=== PATIENT | male | born 1955 | race Hispanic/Latino ===

== ENCOUNTER 2016-07-04 13:09 | Inpatient (IN) | payer MEDICARE ==
[2016-07-04] MEDS ORDERED: DULCOLAX PR PRN (14:17)
[2016-07-04] MEDS ORDERED: DUONEB 0.5 MG-3 MG/3 ML SOLN IH PRN (14:17)
[2016-07-04] MEDS: SENOKOT PO SCH (15:58)
--- NOTE | 2016-07-04 16:01 | History and Physical Report ---
History of Present Illness Date: 07/04/16 Referring Facility: [facility] Date of admission: 07/04/16 13:09 Chief Complaint: Debility, s/p acute respiratory failure History of present illness: POST ADMISSION PHYSICIAN EVALUATION ONSET DATE: 06/05/2016 IMPAIRMENT GROUP CODE: 16 ETIOLOGIC DIAGNOSIS: s/p acute respiratory failure with hypoxia STATUS CHANGES SINCE PREADMISSION SCREENING: PAS has been reviewed. In comparison, brand has been removed; pt tolerated decannulation overnight without distress. Pt reports increased pain (h/o chronic pain) since transitioning from IV to oral pain meds. Will continue to follow; pt is opioid dependent for many years and is followed in the community. At this time, pt remains an appropriate candidate for IRU admission. PREVIOUS FUNCTIONAL STATUS: Independent with ADLs, gait, transfers CURRENT FUNCTIONAL STATUS: per PAS, s/u to [facility] for ADLs; SBA-[facility] for transfers; [facility] for gait 20-25 feet with RW: PT/OT evaluations to be initiated in AM HPI 61 y.o. male who initially presented to [facility] with acute respiratory failure from [address]; voluntary admission for alcohol abuse. Pt was intubated on admission; respiratory failure thought to be secondary to COPD. Acute care course significant for toxic/metabolic encephalopathy, sepsis, severe hyperkalemia requiring emergent hemodialysis. Once stable, pt was transferred to LTAC for vent management and weaning. Pt required trach placement (06/11), however, is now decannulated (07/03); encephalopathy and sepsis have resolved; no longer requires HD. Pt is with noted functional deficits due to prolonged hospitalization and is now admitted to [facility] for aggressive therapies and ongoing medical management. Past History Past Medical History: arthritis (rheumatoid), COPD, GERD, renal failure (satge II), other (depression; substance abuse; cervical spine disease) Past Surgical History: cholecystectomy, tonsillectomy Social history: lives with family (sister), smoking, alcohol abuse Family history: hypertension Medications and Allergies Allergies Allergy/AdvReac Type Severity Reaction Status Date / Time No Known Allergies Allergy Verified 04/19/13 12:09 Home Medications Medication Instructions Recorded Confirmed Last Taken Type Ibuprofen [Motrin 800 MG tab] 800 mg PO Q6HR PRN 10/02/15 05/23/16 10/01/15 History Buprenorphine (Nf) [Subutex (Nf)] 8 mg PO BID 05/23/16 05/23/16 Unknown History Metoprolol Tartrate [Lopressor] 50 mg PO BID 05/23/16 05/23/16 Unknown History Pantoprazole [Protonix TAB] 40 mg PO QDAY 05/23/16 05/23/16 Unknown History Quetiapine Fumarate [Seroquel] 100 mg PO QHS 05/23/16 05/23/16 Unknown History amLODIPine [Norvasc] 10 mg PO DAILY 05/23/16 05/23/16 Unknown History cloNIDine [Catapres] 0.1 mg PO Q6H PRN 05/23/16 05/23/16 Unknown History diphenhydrAMINE [Benadryl CAP] 25 mg PO QHS 05/23/16 05/23/16 Unknown History Acetaminophen [Acetaminophen TAB] 650 mg PO Q6H PRN #30 tablet 06/02/16 Unknown Rx Antacid [Alum-Mag Hydrox-Simeth 30 ml PO Q4H PRN #30 oral.liqd 06/02/16 Unknown Rx [id number]/5Ml] Bisacodyl [Dulcolax suppos] 10 mg ME QDAY PRN #30 supp.rect 06/02/16 Unknown Rx Citalopram [Celexa] 20 mg PO QAM #30 tablet 06/02/16 Unknown Rx Folic Acid [Folvite] 1 mg PO QDAY tablet 06/02/16 Unknown Rx Gabapentin [Neurontin] 300 mg PO HS capsule 06/02/16 Unknown Rx Ipratropium/Albuterol Sulfate 1 ampul IH Q8HRT ampul.neb 06/02/16 Unknown Rx [Duoneb 0.5 mg-3 mg/3 ml Soln] Lactulose [Cephulac] 20 gm FEEDTUBE Q6H PRN #30 06/02/16 Unknown Rx oral.liqd Lipase/Protease/Amylase [Pancreaze 1 each FEEDTUBE PRN PRN #30 capsule 06/02/16 Unknown Rx 10,500 Unit] Magnesium Hydroxide [Milk of 30 ml PO Q4H PRN #30 oral.liqd 06/02/16 Unknown Rx Magnesia] Metoprolol [Lopressor TAB] 12.5 mg PO BID tablet 06/02/16 Unknown Rx Min Oil/Petrolatum [Artificial 1 applic OU Q4HR PRN #30 tube 06/02/16 Unknown Rx Tears Ophth Oint] Multivitamins Liq [Multiple 5 ml PO QDAY oral.liqd 06/02/16 Unknown Rx Vitamin Liq (Theragran)] Petrolatum,White [Vaseline Lip 1 applic TP Q2H PRN #30 tube 06/02/16 Unknown Rx Therapy] Simple Syrup 15 ml FEEDTUBE PRN PRN #30 06/02/16 Unknown Rx oral.liqd Simple Syrup 30 ml FEEDTUBE PRN PRN #30 06/02/16 Unknown Rx oral.liqd Sodium Bicarbonate 325 mg FEEDTUBE PRN PRN #30 tablet 06/02/16 Unknown Rx Thiamine [Vitamin B-1] 100 mg PO QDAY tablet 06/02/16 Unknown Rx busPIRone [Buspar] 10 mg PO TID tablet 06/02/16 Unknown Rx Heparin 5,000 unit IV ANTON PRN #30 vial 06/05/16 Unknown Rx Midazolam [Versed/Ns 100Mg/100Ml] 100 ml IV TITR bag 06/05/16 Unknown Rx Min Oil/Petrolatum [Artificial 1 applic OU Q4HR PRN #30 tube 06/05/16 Unknown Rx Tears Ophth Oint] chlordiazePOXIDE [Librium] 25 mg FEEDTUBE Q8H PRN #30 capsule 06/05/16 Unknown Rx Active Meds: Active Medications Acetaminophen (Tylenol) 650 mg PO Q6H PRN PRN Reason: Pain Al Hydrox/Mg Hydrox/Simethicone (Alum-Mag Hydrox-Simeth [id number]/5ml) 30 ml PO Q4H PRN PRN Reason: Indigestion Albuterol/Ipratropium (Duoneb 0.5 Mg-3 Mg/3 Ml Soln) 1 ampul IH Q8HRT PRN PRN Reason: Wheezing Bisacodyl (Dulcolax) 10 mg ME QDAY PRN PRN Reason: constipation unrelieved by MOM Buspirone HCl (Buspar) 10 mg PO TID [facility] Citalopram Hydrobromide (Celexa) 20 mg PO QAM [facility] Docusate Sodium (Colace) 100 mg PO BID [facility] Folic Acid (Folvite) 1 mg PO QDAY [facility] Gabapentin (Neurontin) 300 mg PO HS [facility] Glycopyrrolate (Robinul) 1 mg PO TID [facility] Heparin Sodium (Porcine) (Heparin) 5,000 unit SUB-Q Q12HR [facility] Insulin Human Regular (Novolin R) 0 units SUB-Q ACHS [facility] PRN Reason: Protocol Labetalol HCl (Normodyne) 200 mg PO BID [facility] Metoprolol Tartrate (Lopressor) 12.5 mg PO BID [facility] Multivitamins (Centrum Liq) 5 ml PO QDAY [facility] Nicotine (Habitrol) 14 mg TD QDAY [facility] Pantoprazole Sodium (Protonix) 40 mg PO QDAY [facility] Quetiapine Fumarate (Seroquel) 300 mg PO QHS [facility] Quetiapine Fumarate (Seroquel) 200 mg PO QAM [facility] Scopolamine (Transderm-Scop) 1 each TD Q3D [facility] Senna (Senokot) 8.6 mg PO Q12H [facility] Last Admin: 07/04/16 15:58 Dose: Not Given Thiamine HCl (Vitamin B-1) 100 mg PO QDAY [facility] Review of Systems All systems: negative Constitutional: chronic pain Ears, nose, mouth and throat: headache Respiratory: no cough, no shortness of breath Gastrointestinal: constipation, no nausea, no vomiting Genitourinary Male: no dysuria Musculoskeletal: morning stiffness Neurological: numbness (RLE) Psychiatric: anxiety Exam - Constitutional General appearance: mild distress (generalized pain complaints) - EENT Eyes: EOM intact ENT: hearing intact - Neck Neck: supple, normal ROM - Respiratory Respiratory effort: normal Respiratory: bilateral: CTA - Cardiovascular Rhythm: regular Heart Sounds: Present: S1 & S2 - Extremities Extremities: No edema Extremity abnormal: ulceration (eschars at bilateral feet; healing) - Gastrointestinal General gastrointestinal: Present: soft, non-tender, non-distended, normal bowel sounds - Neurologic Neurologic: CNII-XII intact, moves all extremities, other (sensation decreased at RLE) - Psychiatric Psychiatric: appropriate mood/affect, intact judgment & insight, memory intact, cooperative Assessment and Plan Assessment and plan: 61 y.o. male s/p acute respiratory failure secondary to COPD exacerbation; s/p trach, now decannulated 24 hours; h/o chronic pain, alcohol abuse; debility due to prolonged hospitalization. The patient is medically stable, however, requires ongoing medical management. Pt is appropriate for inpatient rehabilitation admission and is thought to be able to tolerate at least 3 hours of therapy a day, 5 days a week including 1.5 hours of physical therapy and 1.5 hours of occupational therapy. Patient is able to understand and follow basic directions and has attainable rehab goals. Potential barriers/complications include falls, respiratory distress/failure, DVT, PE, syncope, hypotension, anxiety. Plan 1. Rehabilitation- Pt will undergo multidisciplinary/integrative rehab PT/OT, Nursing. Areas to be addressed include, but are not limited to PT for mobility , strengthening, transfer training, ROM, endurance, stairs, balance; OT for ADLs , household tasks, adaptive equipment; Nursing for carryover of therapies, pain control, safety education, skin integrity, medication management, bowel/bladder management; Nutrition as needed; special services coordinator for discharge planning and equipment needs. Potential interventions include appropriate assistive device or adaptive equipment. Expected overall level of functional improvement by discharge is Fareed/Independent for ADLs, gait, transfers. Pt will tentatively be discharged home with outpatient PT. Estimated length of stay is 7-10 days. 2. Debility- PT/OT to address mobility, balance, strengthening 3. s/p resp failure- s/p decannulation; follow oxygen saturation; stoma care 4. wound care consult placed for LE wounds/eschars 5. chronic pain/opioid dependence- prn Morphine; will need to follow up with outpt pain management at discharge 6. COPD- nebs prn 7. tobacco abuse- nicotine patch 8. HTN- continue current regimen; adjust as needed; avoid hypotension 9. ETOH abuse- continue thiamine, folic acid, multivitamin 10. GERD- protonix 11. DVT px- heparin - Patient Problems (1) Debility Current Visit: Yes Status: Acute (2) Respiratory failure with hypoxia Current Visit: No Status: Acute (3) COPD (chronic obstructive pulmonary disease) Current Visit: Yes Status: Acute (4) Chronic pain disorder Current Visit: Yes Status: Acute (5) Alcohol abuse Current Visit: No Status: Chronic (6) Tobacco abuse Current Visit: Yes Status: Acute (7) Opioid dependence Current Visit: Yes Status: Acute Qualifiers: Substance use status: uncomplicated Qualified Code(s): F11.20 - Opioid dependence, uncomplicated (8) HTN (hypertension) Current Visit: Yes Status: Acute Qualifiers: Hypertension type: essential hypertension Qualified Code(s): I10 - Essential (primary) hypertension (9) GERD (gastroesophageal reflux disease) Current Visit: Yes Status: Acute
[2016-07-04] MEDS ORDERED: MORPHINE PO PRN (16:14)
[2016-07-04] MEDS: ALUM-MAG HYDROX-SIMETH 200-200-20MG/5ML PO PRN (17:16)
[2016-07-04] MEDS: MORPHINE PO PRN ×2 (17:29→21:36)
[2016-07-04] MEDS ORDERED: MILK OF MAGNESIA PO PRN (20:12)
[2016-07-04 21:16] LABS: Bilirubin,Urine NEG (Negative); Blood,Urine NEG (Negative); Ketones,Urine NEG (Negative); Leukocyte Esterase,Urine NEG (Negative); Nitrite,Urine NEG (Negative); Protein,Urine <15 mg/dL mg/dL (Negative); RBC,Urine < 1.0 /HPF (0.0-6.0); Urobilinogen,Urine < 2.0 mg/dL (<2.0); WBC,Urine < 1.0 /HPF (0.0-6.0)
[2016-07-04] MEDS: HEPARIN SUB-Q SCH (21:17)
[2016-07-04] MEDS: COLACE PO SCH (21:19)
[2016-07-04] MEDS: NEURONTIN PO SCH (21:20)
[2016-07-04] MEDS: BUSPAR PO SCH (21:20)
[2016-07-04] MEDS: LOPRESSOR PO SCH (21:20)
[2016-07-04] MEDS: ROBINUL PO SCH (21:20)
[2016-07-04] MEDS: NORMODYNE PO SCH (21:21)
[2016-07-04] MEDS: ATIVAN PO PRN (21:24)
[2016-07-05] MEDS: TYLENOL PO PRN ×2 (00:30→20:23)
[2016-07-05] MEDS: MORPHINE PO PRN ×5 (02:25→21:54)
[2016-07-05] MEDS: SENOKOT PO SCH ×2 (02:26→17:06)
[2016-07-05 07:02] LABS: Basophils % (Auto) 0.9 % (0.0-1.8); Eosinophils % (Auto) 11.2 % (0.0-4.3); Hemoglobin 10.9 gm/dl (11.8-15.2); Mean Corpuscular HGB Conc 33 % (32-34); Mean Corpuscular Hemoglobin 33 pg (28-32); Mean Corpuscular Volume 98 fl (84-94); Red Blood Count 3.35 M/mm3 (3.65-5.03); Red Cell Distribution Width 15.9 % (13.2-15.2); White Blood Count 6.2 K/mm3 (4.5-11.0)
[2016-07-05 07:06] LABS: Platelet Count 93 K/mm3 (140-440)
[2016-07-05 07:23] LABS: Alanine Aminotransferase 12 units/L (7-56); Albumin/Globulin Ratio 1.4 %; Alkaline Phosphatase 32 units/L (35-129); BUN/Creatinine Ratio 13.33; Bilirubin,Total 0.3 mg/dL (0.1-1.2); Blood Urea Nitrogen 8 mg/dL (9-20); Calcium 9.1 mg/dL (8.4-10.2); Carbon Dioxide 25 mmol/L (22-30); Chloride 99.1 mmol/L (98-107); Glucose 92 mg/dL (75-100); Sodium 140 mmol/L (137-145); Total Protein 6.9 g/dL (6.3-8.2)
[2016-07-05 07:25] LABS: Anion Gap 20 mmol/L
[2016-07-05] MEDS: LOPRESSOR PO SCH ×2 (07:33→21:50)
[2016-07-05] MEDS: HABITROL TD SCH (07:33)
[2016-07-05] MEDS: VITAMIN B-1 PO SCH (07:33)
[2016-07-05] MEDS: BUSPAR PO SCH ×3 (07:34→20:25)
[2016-07-05] MEDS: ROBINUL PO SCH ×3 (07:34→20:25)
[2016-07-05] MEDS: FOLVITE PO SCH (07:34)
[2016-07-05] MEDS: PROTONIX PO SCH (07:34)
[2016-07-05] MEDS: COLACE PO SCH ×2 (07:34→21:51)
[2016-07-05] MEDS: NORMODYNE PO SCH ×2 (07:34→21:51)
[2016-07-05] MEDS: Centrum Liq PO SCH (08:03)
[2016-07-05] MEDS: celeXA PO SCH (09:58)
[2016-07-05] MEDS: HEPARIN SUB-Q SCH ×3 (09:58→21:56)
[2016-07-05] MEDS: ALUM-MAG HYDROX-SIMETH 200-200-20MG/5ML PO PRN (11:09)
[2016-07-05] MEDS: NEURONTIN PO SCH ×2 (20:23→21:57)
[2016-07-05] MEDS: ATIVAN PO PRN (20:25)
[2016-07-05] MEDS: MACROBID PO SCH (21:49)
[2016-07-06] MEDS: SENOKOT PO SCH ×2 (02:54→15:08)
[2016-07-06] MEDS: MORPHINE PO PRN ×5 (03:04→23:09)
[2016-07-06] MEDS: NORMODYNE PO SCH (08:00)
[2016-07-06] MEDS: PROTONIX PO SCH ×2 (08:42→21:24)
[2016-07-06] MEDS: ROBINUL PO SCH ×3 (08:42→21:23)
[2016-07-06] MEDS: celeXA PO SCH ×2 (08:42→09:30)
[2016-07-06] MEDS: VITAMIN B-1 PO SCH (08:42)
[2016-07-06] MEDS: FOLVITE PO SCH (08:43)
[2016-07-06] MEDS: BUSPAR PO SCH ×3 (08:43→21:24)
[2016-07-06] MEDS: COLACE PO SCH ×2 (08:43→21:24)
[2016-07-06] MEDS: Centrum Liq PO SCH (08:44)
[2016-07-06] MEDS: MACROBID PO SCH ×3 (08:44→21:23)
[2016-07-06] MEDS: HABITROL TD SCH (08:44)
[2016-07-06] MEDS: LOPRESSOR PO SCH ×2 (08:45→21:24)
[2016-07-06] MEDS: HEPARIN SUB-Q SCH ×3 (08:54→21:25)
--- NOTE | 2016-07-06 09:48 | IRU Plan of Care ---
Interdisciplinary Plan of Care - IP IRU INTERDISCIPLINARY PLAN: [facility] Inpatient Rehab Unit Plan of Care IRU Interdisciplinary Care Plan Start: 07/04/16 14: 15 Freq: Admission then PRN Status: Active Document 07/06/16 09:27 DB (Rec: 07/06/16 09:32 DB [id number]) Interdisciplinary Problem List Interdisciplinary Problem List Interdisciplinary Problem List Impaired Bathing/Grooming Query Text:Answers will Trigger Problems Impaired Dressing and Outcomes on Worklist. Impaired Mobility Impaired Transfers Pain Management Knowledge Deficits Impaired Skin/Tissue Integrity Impaired Home Management Impaired Safety Medications Education IRU Interdisciplinary Care Plan Therapy Services Therapy Services Will Include: Physical Therapy Query Text:Patient will be seen for a Occupational Therapy minimum of 3 hours of daily therapy 5 out of 7 days a week. Therapy intensity may be adjusted within a 7 consecutive day period to effectively serve the individual needs of the patient. Treatment Frequency/Intensity/Duration Treatment Frequency 5 days per week Treatment Intensity 1.5 hours per discipline (PT/OT ) daily Treatment Duration 7-10 days Problem Area: Eating/Swallowing Eating/Swallowing Outcomes Eating/Swallowing Interventions Problem Area: Bathing/Grooming Bathing/Grooming Outcomes Improve Maynard w/ Grooming Improve Maynard w/ Bathing Bathing/Grooming Interventions ADL Training Neuromuscular Re-Education Balance Work Activity Tolerance Work Patient/Caregiver Education Problem Area: Dressing Dressing Outcomes Improve [place]nard w/ UB Dressing Improve Maynard w/ LB Dressing Dressing Interventions ADL Training Neuromuscular Re-Education Balance Work Patient/Caregiver Education Problem Area: Mobility Mobility Outcomes Improve [place]nard w/ Bed Mobility Improve [place]nard w/ Ambulation Improve [place]nard w/ Stairs /Curb Improve Maynard w/ Wheelchair Mobility Interventions Therapeutic Exercise Neuromuscular Re-Ed. Use of Assistive Devices Patient/Caregiver Education Bed Mobility Work Gait Training W/C Mobility Work Problem Area: Transfers Transfers Outcomes Improve [place]nard w/ Bed Transfers Improve [place]nard w/ Toilet Transfers Improve Maynard w/ Tub/ Shower Transfers Improve Maynard w/ Car Transfers Transfers Interventions Transfer Training Neuromuscular Re-Education Activity Tolerance Work Patient/Caregiver Education Problem Area: Bowel/Bladder Managment Bowel/Bladder Outcomes Remain free of UTI Bowel/Bladder Interventions Medication Education Patient/Caregiver Education Problem Area: Toileting Toileting Outcomes Improve Maynard w/ Toileting Toileting Interventions ADL Training Patient/Caregiver Education Problem Area: Nutrition Nutrition Outcomes Understand and Comply w/ Diet Nutrition Interventions Nutritional Counseling Monitor Nutrient Intake Patient/Caregiver Education Problem Area: Comprehension Comprehension Outcomes Comprehension Interventions Problem Area: Expression Expression Outcomes Expression Interventions Problem Area: Problem Solving Problem Solving Outcomes Problem Solving Interventions Problem Area: Memory Memory Outcomes Memory Interventions Problem Area: Pain Management Pain Management Outcomes Demonstrate/Verbalize Pain Strategies Pain Management Interventions Medication Management Positioning/Turning Patient/Caregiver Education Problem Area: Knowledge Deficits Knowledge Deficits Outcomes Verbalize Precautions Knowledge Deficits Interventions Medication Use Education Safety Education Problem Area: Skin/Tissue Integrity Skin/Tissue Integrity Outcomes Exhibit Healing of Wound/ Incision Demonstrate Understanding of Self Wound Care Skin/Tissue Integrity Interventions Skin/Wound Care Dressing Change Education Problem Area: Social Interaction Social Interaction Outcomes Social Interaction Interventions Problem Area: Adjustment to Disability Adjustment to Disability Outcomes Adjustment to Disability Interventions Problem Area: Discharge Concerns Discharge Concerns Outcomes Discharge Home w/ Necessary Equipment Have Home Health/Outpatient Services Discharge Concerns Interventions Discharge Planning Family/Caregiver Conference Family/Caregiver Training Problem Area: Community Reintegration Community Reintegration Outcomes Demonstrate Understanding of Community Resources Community Reintegration Interventions Provide Community Resources Problem Area: Home Management Home Management Outcomes Improve Maynard w/ Home Management Home Management Interventions Clothing Care Activity Tolerance Work Problem Area: Safety Safety Outcomes Provide Safe Environment Demonstrate Good Safety w/ Transfers/Mobility Safety Interventions Identify Fall Risk [place] Pt. to Environment Reduce Environmental Hazards Problem Area: Medication Education Medication Education Outcomes Patient/Caregiver will Verbalize Understanding of Medications Medication Education Interventions Explain Administration/Side Effects/Interactions Problem Area: Diabetes Education Diabetes Education Outcomes Diabetes Education Interventions Problem Area: Oxygenation Oxygenation Outcomes Oxygenation Interventions Problem Area: Cardiovascular Cardiovascular Outcomes Cardiovascular Interventions Physician Only Medical Prognosis and Rehabilitation Patient demonstrates good Potential (Completed by Physician) rehab potential. Medical Prognosis: Good This plan of care has been developed based on the findings from the pre- admission assessment, post admission physician evaluation, information gathered from the assessments from all therapy disciplines and other pertinent clinicians. The plan of care has been reviewed and discussed in collaboration with the interdisciplinary team. The plan of care will be reviewed and updated at least weekly. 61 y.o. male s/p acute respiratory failure secondary to COPD exacerbation; s/p trach, decannulated prior to IRU admission; h/o chronic pain, alcohol abuse; debility due to prolonged hospitalization. The patient remains at risk for falls, respiratory distress/failure, DVT, PE, syncope, hypotension, anxiety. Pt noted to have intermittent hypotension; meds adjusted. Failed voiding trial ; brand removed on AM of IRU admission and pt was unable to void. Brand is now back in place; +enteroccoccus UTI, now on ABX. Pt also reports history of taking flomax. Will restart when blood pressure can tolerate. Pt si requiring ongoing pain med adjustment, given history of chronic pain. Will continue to follow closely; avoid sedation. No shortness of breath reported following decannulation. Pt continues with functional deficits; min/CGA for transfers and gait. Pt remains an appropriate candidate for IPR course.
--- NOTE | 2016-07-06 13:14 | Progress Note ---
Assessment and Plan 61 y.o. male s/p acute respiratory failure secondary to COPD exacerbation; s/p trach, now decannulated; h/o chronic pain, alcohol abuse; debility due to prolonged hospitalization - Debility- continue PT/OT to address mobility, balance, strengthening - s/p resp failure- s/p decannulation; on room air; stoma care - wound care consult pending for LE wounds/eschars - chronic pain/opioid dependence- Morphine ER added; continue MS IR for breakthrough - HTN- intermittent hypotension noted; meds adjusted, continue to follow - urinary retention- brand replaced; repeat voiding trial later in week - Enterococcus UTI- on Macrobid; follow sensitivities - ETOH abuse- continue thiamine, folic acid, multivitamin - constipation- colace, senna BID; milk of mag - anemia- follow - DVT px- heparin - Patient Problems (1) Debility Current Visit: Yes Status: Acute (2) Respiratory failure with hypoxia Current Visit: Yes Status: Acute Qualifiers: Chronicity: acute Qualified Code(s): J96.01 - Acute respiratory failure with hypoxia (3) COPD (chronic obstructive pulmonary disease) Current Visit: Yes Status: Acute Qualifiers: COPD type: unspecified COPD Qualified Code(s): J44.9 - Chronic obstructive pulmonary disease, unspecified (4) Chronic pain disorder Current Visit: Yes Status: Acute (5) Alcohol abuse Current Visit: Yes Status: Chronic (6) Opioid dependence Current Visit: Yes Status: Chronic Qualifiers: Substance use status: uncomplicated Qualified Code(s): F11.20 - Opioid dependence, uncomplicated (7) HTN (hypertension) Current Visit: Yes Status: Chronic Qualifiers: Hypertension type: essential hypertension Qualified Code(s): I10 - Essential (primary) hypertension (8) GERD (gastroesophageal reflux disease) Current Visit: Yes Status: Chronic Qualifiers: Esophagitis presence: without esophagitis Qualified Code(s): K21.9 - Gastro -esophageal reflux disease without esophagitis (9) Anemia Current Visit: Yes Status: Acute (10) Enterococcus UTI Current Visit: Yes Status: Acute Subjective Date of service: 07/06/16 Principal diagnosis: debility; s/p acute respiratory failure Interval history: Pt seen in PT gym this AM, IPR F/U, Debility following acute resp failure. Pt c /o pain all over; still no BM, refusing any other laxative aside from MOM Objective - Constitutional Vitals: Vital Signs - 12hr 07/06/16 07/06/16 07/06/16 08:00 08:01 08:45 Temperature 96.9 F L Pulse Rate 87 Pulse Rate [ 97 H Apical] Respiratory 20 20 Rate Blood Pressure 106/69 Blood Pressure 106/69 [Left Arm] O2 Sat by Pulse 97 Oximetry 07/06/16 07/06/16 09:01 12:27 Temperature Pulse Rate Pulse Rate [ Apical] Respiratory 20 20 Rate Blood Pressure Blood Pressure [Left Arm] O2 Sat by Pulse Oximetry General appearance: Present: no acute distress, other (lying on mat) - EENT Eyes: EOM intact ENT: hearing intact - Neck Neck: supple, normal ROM - Respiratory Respiratory effort: normal Respiratory: bilateral: CTA - Cardiovascular Rhythm: regular Heart Sounds: Present: S1 & S2 Extremities: No edema - Gastrointestinal General gastrointestinal: Present: soft, non-tender, non-distended, normal bowel sounds - Neurologic Neurologic: CNII-XII intact, moves all extremities - Psychiatric Psychiatric: appropriate mood/affect, cooperative - Allied health notes Allied health notes reviewed: PT (supervision for transfers and gait; maxA for stairs), OT (Independent to [facility] for ADLs) - Labs CBC & Chem 7: 07/05/16 06:21 07/05/16 06:21
[2016-07-06] MEDS: ATIVAN PO PRN (13:33)
[2016-07-06] MEDS ORDERED: TRANSDERM-SCOP TD SCH (15:00)
[2016-07-06] MEDS: NEURONTIN PO SCH (21:24)
[2016-07-06] MEDS: MS CONTIN ER PO SCH (21:27)
[2016-07-07] MEDS: SENOKOT PO SCH ×2 (02:52→15:33)
[2016-07-07] MEDS: MORPHINE PO PRN ×3 (05:24→18:15)
[2016-07-07] MEDS: LOPRESSOR PO SCH ×2 (08:06→21:43)
[2016-07-07] MEDS: PROTONIX PO SCH ×2 (08:51→21:42)
[2016-07-07] MEDS: VITAMIN B-1 PO SCH (08:51)
[2016-07-07] MEDS: celeXA PO SCH ×2 (08:51→10:07)
[2016-07-07] MEDS: COLACE PO SCH ×2 (08:51→21:41)
[2016-07-07] MEDS: FOLVITE PO SCH (08:51)
[2016-07-07] MEDS: BUSPAR PO SCH ×3 (08:51→21:41)
[2016-07-07] MEDS: Centrum Liq PO SCH (08:52)
[2016-07-07] MEDS: HABITROL TD SCH (08:52)
[2016-07-07] MEDS: MACROBID PO SCH ×3 (08:52→21:43)
[2016-07-07] MEDS: ROBINUL PO SCH ×3 (08:52→21:45)
[2016-07-07] MEDS: MILK OF MAGNESIA PO SCH (08:56)
[2016-07-07] MEDS: MS CONTIN ER PO SCH ×2 (10:02→21:44)
[2016-07-07] MEDS: HEPARIN SUB-Q SCH ×2 (10:04→21:44)
--- NOTE | 2016-07-07 12:28 | Progress Note ---
Assessment and Plan 61 y.o. male s/p acute respiratory failure secondary to COPD exacerbation; s/p trach, now decannulated; h/o chronic pain, alcohol abuse; debility due to prolonged hospitalization - Debility- improving balance and independence - appreciate wound care consult; continue ongoing care for LE wounds/eschars - chronic pain/opioid dependence- continue current regimen of Morphine ER and MS IR for breakthrough; pt on suboxone as an outpt (last filled in his routine pharmacy, [facility], on 11/07/2015), however, reports that he was discharged ( due to behavior) from his pain clinic several months ago and has been getting his medications "from all over." Pt will need to establish care in the community after discharge; this was discussed in detail on today. Neurontin dose increased from 300mg QHS to TID - HTN- low BP this AM, metoprolol held; follow, asymptomatic - urinary retention- brand replaced; repeat voiding trial in AM in preparation for d/c home - Enterococcus UTI- on Macrobid, Day 3 - constipation- likely chronic due to longstanding history of opioid dependence ; continue colace, senna BID; milk of mag - DVT px- heparin - team conference held on today- pt is independent for eating, supervision for bathing and shower transfers, Faered for remaining ADLs; Fareed for bed mobility and transfers; ambulating 340 feet FWW with supervision. Barriers- impulsive, chronic pain, urinary retention, hypotension. Will complete voiding trial in AM , continue to follow BP. Family training scheduled with sister on 07/09; tentative d/c home on 07/09 following family training. - Patient Problems (1) Debility Current Visit: Yes Status: Acute (2) COPD (chronic obstructive pulmonary disease) Current Visit: Yes Status: Acute Qualifiers: COPD type: unspecified COPD Qualified Code(s): J44.9 - Chronic obstructive pulmonary disease, unspecified (3) Chronic pain disorder Current Visit: Yes Status: Acute (4) Opioid dependence Current Visit: Yes Status: Chronic Qualifiers: Substance use status: uncomplicated Qualified Code(s): F11.20 - Opioid dependence, uncomplicated (5) HTN (hypertension) Current Visit: Yes Status: Chronic Qualifiers: Hypertension type: essential hypertension Qualified Code(s): I10 - Essential (primary) hypertension (6) GERD (gastroesophageal reflux disease) Current Visit: Yes Status: Chronic Qualifiers: Esophagitis presence: without esophagitis Qualified Code(s): K21.9 - Gastro -esophageal reflux disease without esophagitis (7) Enterococcus UTI Current Visit: Yes Status: Acute (8) Acute urinary retention Current Visit: Yes Status: Acute Subjective Date of service: 07/07/16 Principal diagnosis: debility; s/p acute respiratory failure Interval history: Pt seen in PT gym this AM adn in room this afternoon, IPR F/U, Debility following acute resp failure. Pt continues to complain of pain, Neurontin dose modified to pt's home dose of TID Objective - Constitutional Vitals: Vital Signs - 12hr 07/07/16 07/07/16 07/07/16 05:24 06:24 08:06 Temperature Pulse Rate 94 H Pulse Rate [ From Monitor] Respiratory 20 17 Rate Respiratory Rate [ Generalized] Respiratory Rate [Posterior Neck] Blood Pressure 97/63 Blood Pressure [Left Arm] O2 Sat by Pulse Oximetry 07/07/16 07/07/16 07/07/16 08:10 09:00 10:02 Temperature 98.7 F Pulse Rate Pulse Rate [ 94 H From Monitor] Respiratory 18 22 Rate Respiratory 22 Rate [ Generalized] Respiratory 22 Rate [Posterior Neck] Blood Pressure Blood Pressure 97/63 [Left Arm] O2 Sat by Pulse 93 Oximetry 07/07/16 11:31 Temperature Pulse Rate Pulse Rate [ From Monitor] Respiratory 20 Rate Respiratory Rate [ Generalized] Respiratory Rate [Posterior Neck] Blood Pressure Blood Pressure [Left Arm] O2 Sat by Pulse Oximetry General appearance: Present: no acute distress, other (lying on mat) - EENT Eyes: EOM intact ENT: hearing intact - Neck Neck: supple, normal ROM - Respiratory Respiratory effort: normal Extremities: No edema - Gastrointestinal General gastrointestinal: Present: soft, non-tender, non-distended, normal bowel sounds - Neurologic Neurologic: CNII-XII intact, moves all extremities - Psychiatric Psychiatric: appropriate mood/affect, intact judgment & insight, memory intact, cooperative - Labs CBC & Chem 7: 07/05/16 06:21 07/05/16 06:21
[2016-07-07] MEDS: NEURONTIN PO SCH ×2 (15:26→21:42)
[2016-07-07] MEDS: BENADRYL PO PRN (17:39)
[2016-07-07] MEDS: TYLENOL PO PRN (21:41)
[2016-07-08] MEDS: BENADRYL PO PRN (00:59)
[2016-07-08] MEDS: MORPHINE PO PRN ×2 (00:59→14:08)
[2016-07-08] MEDS: SENOKOT PO SCH ×2 (02:59→14:09)
[2016-07-08] MEDS: MILK OF MAGNESIA PO SCH (08:00)
[2016-07-08] MEDS: Centrum Liq PO SCH (08:00)
[2016-07-08] MEDS: VITAMIN B-1 PO SCH (08:00)
[2016-07-08] MEDS: ROBINUL PO SCH ×3 (08:00→20:13)
[2016-07-08] MEDS: FOLVITE PO SCH (08:00)
[2016-07-08] MEDS: PROTONIX PO SCH (08:00)
[2016-07-08] MEDS: LOPRESSOR PO SCH (08:00)
[2016-07-08] MEDS: NEURONTIN PO SCH ×3 (08:00→20:13)
[2016-07-08] MEDS: HABITROL TD SCH (08:00)
[2016-07-08] MEDS: COLACE PO SCH (08:00)
[2016-07-08] MEDS: BUSPAR PO SCH ×3 (08:00→20:13)
[2016-07-08] MEDS: HEPARIN SUB-Q SCH (10:00)
[2016-07-08] MEDS: MACROBID PO SCH (10:00)
[2016-07-08] MEDS: MS CONTIN ER PO SCH (10:00)
[2016-07-08] MEDS: celeXA PO SCH (10:00)
--- NOTE | 2016-07-08 13:40 | Discharge Summary ---
Providers - Providers Date of Admission: 07/04/16 13:09 Date of discharge: 07/08/16 Attending physician: LYNDON TY 07/04/16 14:13 Occupational Therapy Evaluate and Treat [CONS] Routine Comment: Reason For Exam: s/p resp failure, COPD Physical Therapy Evaluation and Treat [CONS] Routine Comment: Reason For Exam: s/p resp failure, COPD 07/04/16 14:23 Consult to Wound/ET Nurse [CONS] Routine Reason For Exam: wound eval Primary care physician: Dr. Cee Blake Hospitalization Reason for admission: Debility, s/p acute respiratory failure Condition: Stable Hospital course: 61 y.o. male who initially presented to [facility] with acute respiratory failure from [place]; voluntary admission for alcohol abuse. Pt was intubated on admission due to respiratory failure thought to be secondary to COPD. Acute care course significant for toxic/metabolic encephalopathy, sepsis, severe hyperkalemia requiring emergent hemodialysis. Once stable, pt was transferred to LTAC for vent management and weaning. Pt required trach placement (06/11), however, was decannulated on 07/03; encephalopathy and sepsis have resolved; did not require HD while on LTAC. Pt continued with functional deficits due to prolonged hospitalization and was admitted to [facility] for aggressive therapies and ongoing medical management. Pt has remained off oxygen throughout rehab course without any respiratory distress; has required ongoing pain management as pt is opioid dependent; showed improvement in functional independence since admission. Pt has a history of chronic constipation and has refused recommended regimen aside from milk of magnesia; BP Meds reduced due to intermittent hypotension; failed voiding trial, will need outpatient urology follow-up. On initial evaluation, pt required Emma/CGA for bed mobility, transfers and gait, ambulating 170 feet RW; Independent to Emma for ADLs. At the time of discharge, pt has progressed to supervision to Fareed for transfers, close supervision for gait up to 340 feet with straight cane; Independent to supervision for ADLs. Barriers during admission- impulsive, compliance, chronic pain. Pt refused family training scheduled with sister. Pt is stable for d/c home on today and provided referrals for PCP, pain management clinic, Urology. >30 mins spent on d/c process, pt education, medication reconciliation Disposition: DISCHARGED TO HOME OR SELFCARE - Discharge Diagnoses (1) HTN (hypertension) Status: Chronic Qualifiers: Hypertension type: essential hypertension Qualified Code(s): I10 - Essential (primary) hypertension (2) Chronic pain disorder Status: Acute (3) COPD (chronic obstructive pulmonary disease) Status: Acute Qualifiers: COPD type: unspecified COPD Chronic bronchitis type: C Emphysema type: E Qualified Code(s): J44.9 - Chronic obstructive pulmonary disease, unspecified (4) Debility Status: Acute (5) Opioid dependence Status: Chronic Qualifiers: Substance use status: uncomplicated Complication of substance-induced condition: C Qualified Code(s): F11.20 - Opioid dependence, uncomplicated (6) GERD (gastroesophageal reflux disease) Status: Chronic Qualifiers: Esophagitis presence: without esophagitis Qualified Code(s): K21.9 - Gastro -esophageal reflux disease without esophagitis (7) Enterococcus UTI Status: Acute (8) Acute urinary retention Status: Acute Core Measure Documentation - Palliative Care Palliative Care/ Comfort Measures: Not Applicable - Core Measures Any of the following diagnoses?: none Exam - Constitutional Vitals: Temp Pulse Resp BP Pulse Ox 100.0 F H 114 H 18 133/79 95 07/07/16 22:00 07/07/16 22:00 07/08/16 01:59 07/07/16 22:00 07/07/16 22:00 General appearance: Present: no acute distress - EENT Eyes: Present: EOM intact ENT: hearing intact - Neck Neck: Present: supple, normal ROM - Respiratory Respiratory effort: normal - Extremities Extremities: No edema - Abdominal General gastrointestinal: Present: soft, non-tender, non-distended - Musculoskeletal Musculoskeletal: strength equal bilaterally - Psychiatric Psychiatric: appropriate mood/affect, intact judgment & insight, memory intact, cooperative - Neurologic Neurologic: CNII-XII intact, moves all extremities Plan Activity: no driving until cleared by PCP, fall precautions Weight Bearing Status: Weight Bear as Tolerated Diet: regular Special Instructions: physical therapy ([facility] in [place], [place] ), other (brand care) Durable Medical Equipment Needed Upon Discharge: Cane (straight cane), other ( DME- [employer]) Additional Instructions: referrals given to patient; PCP- Dr. Cee Blake, Family Medicine; Dr. Rolanda Carrasco, Pain Management; Dr. Lavelle Cates, Urology. Pt to make first available appointment; 1 month supply of medications provided Prescriptions: Quetiapine Fumarate [Seroquel] 300 mg PO QHS #30 tablet busPIRone [Buspar] 10 mg PO TID #90 tablet Citalopram [Celexa] 20 mg PO QAM #30 tablet Folic Acid [Folvite] 1 mg PO QDAY #30 tablet Gabapentin [Neurontin] 300 mg PO TID #90 capsule LORazepam [Ativan] 1 mg PO Q4H PRN #30 tablet PRN Reason: Agitation Metoprolol [Lopressor TAB] 12.5 mg PO QDAY #15 tablet Morphine [Morphine TAB] 15 mg PO Q4H PRN #45 tablet PRN Reason: Pain , Severe (7-10) Morphine ER [Ms Contin ER] 15 mg PO Q12HR #60 tablet Multivitamins Liq [Multiple Vitamin Liq (Theragran)] 5 ml PO QDAY 30 Days Nicotine [Habitrol] 14 mg TD QDAY #30 patch Nitrofurantoin [place]/M-Cryst [Macrobid CAP] 100 mg PO Q12HR #8 capsule Pantoprazole [Protonix TAB] 40 mg PO BID #60 tablet QUEtiapine [SEROquel] 200 mg PO QAM #30 tablet Thiamine [Vitamin B-1] 100 mg PO QDAY #30 tablet
[2016-07-08] MEDS: TYLENOL PO PRN (20:13)
[2016-07-08 20:49] VITALS: BP 100/73
[2016-07-09] MEDS ORDERED: LOPRESSOR PO SCH (08:00)
== END 2016-07-08 20:27 | disposition home or self-care (01) | DRG 189 ==
LOC: 3B 13:09
PROVIDERS: ADMIT Family Medicine; ATTEND Family Medicine
DX: J96.01 Acute respiratory failure with hypoxia (principal); G92 Toxic encephalopathy; F11.20 Opioid dependence, uncomplicated; J44.1 Chronic obstructive pulmonary disease with (acute) exacerbation; N39.0 Urinary tract infection, site not specified; G89.29 Other chronic pain; F10.10 Alcohol abuse, uncomplicated; E87.5 Hyperkalemia; M06.9 Rheumatoid arthritis, unspecified; K21.9 Gastro-esophageal reflux disease without esophagitis; N18.2 Chronic kidney disease, stage 2 (mild); F32.9 Major depressive disorder, single episode, unspecified; M48.9 Spondylopathy, unspecified; F17.210 Nicotine dependence, cigarettes, uncomplicated; L97.529 Non-pressure chronic ulcer of other part of left foot with unspecified severity; L97.519 Non-pressure chronic ulcer of other part of right foot with unspecified severity; I12.9 Hypertensive chronic kidney disease with stage 1 through stage 4 chronic kidney disease, or unspecified chronic kidney disease; R33.9 Retention of urine, unspecified; B95.2 Enterococcus as the cause of diseases classified elsewhere; D64.9 Anemia, unspecified; K59.00 Constipation, unspecified; Z90.49 Acquired absence of other specified parts of digestive tract; Z79.899 Other long term (current) drug therapy; Z98.890 Other specified postprocedural states; Z82.49 Family history of ischemic heart disease and other diseases of the circulatory system
CPT/HCPCS: 36415; 80053; 81001; 82962; 83036; 85025; 87086; 87186; J1644